=== PATIENT | female | born 1965 | race Caucasian/White ===

== ENCOUNTER → 2017-09-04 | Outpatient (CLI) | payer BC ==
[~2017-09-04] MED LIST: DIA5 PO; HYD2 PO; HYDR1TAB PO; LEVO75TA68 PO; LEVO88TA42 PO; LIO5 PO; METF-420 PO; OXYC1TAB54 PO; OXYC20TA86 PO
--- NOTE | 2017-09-04 17:44 | RADIOLOGY IMAGING REPORT ---
FACILITY: [facility] - [place] PATIENT NAME: JESSICA PELAEZ : [id number] MR: [id number] V: [id number] EXAM DATE: [id number] ORDERING PHYSICIAN: LYUDMILA WESTBROOK TECHNOLOGIST: Aaliyah Fonseca PROCEDURE:BILATERAL DIGITAL SCREENING MAMMOGRAM WITH CAD ASSISTED INTERPRETATION & 3D TOMOSYNTHESIS COMPARISON:Prior mammograms 10/24/15. INDICATIONS:SCREENING FINDINGS: Moderately dense fibroglandular tissue is seen throughout the breasts. There is a small focal area of increased density just lateral to the mid nipple line approximately 16mm from the nipple on the Right CC view for which spot compression view is recommended. There is a well circumscribed nodular density in the medial portion Left breast on the Left CC view is just above mid nipple line on the Left MLO view for which Left breast Ultrasound is recommended. DIAGNOSTIC CATEGORY 0--INCOMPLETE: NEED ADDITIONAL IMAGING EVALUATION. RECOMMENDATIONS: ADDITIONAL MAMMOGRAPHIC VIEWS REQUIRED: RIGHT BREAST. ULTRASOUND: LEFT BREAST. IMPRESSION: BIRADS 0: Incomplete Additional views of the Right breast and Left breast Ultrasound recommended as described. Dictated by: Jerri Rios M.D. on 09/04/2017 at 11:49 Transcribed by: RACHEL on 09/04/2017 at 13:13 Approved by: Jerri Rios M.D. on 09/04/2017 at 17:43 [facility]
== END ==
LOC: MAMO 01:36
PROVIDERS: ATTEND Family Medicine
DX: Z12.31 Encounter for screening mammogram for malignant neoplasm of breast (principal); R92.8 Other abnormal and inconclusive findings on diagnostic imaging of breast
CPT/HCPCS: 77063; 77067

== ENCOUNTER → 2017-09-23 | Outpatient (CLI) | payer BC ==
--- NOTE | 2017-09-24 11:17 | RADIOLOGY IMAGING REPORT ---
FACILITY: [facility] PATIENT NAME: JESSICA PELAEZ : [id number] MR: [id number] V: [id number] EXAM DATE: [id number] ORDERING PHYSICIAN: LYUDMILA WESTBROOK TECHNOLOGIST: Aaliyah Fonseca PROCEDURE:RIGHT DIGITAL DIAGNOSTIC MAMMOGRAM WITH CAD ASSISTED INTERPRETATION & 3D TOMOSYNTHESIS COMPARISON:Prior mammograms 09/04/17, 10/24/15. INDICATIONS:further evaluation FINDINGS: The patient received a mediolateral view of the Right breast and a Spot compression view in the Right CC projection. Small focal rounded area just lateral to the Right nipple on the Right CC view is re-demonstrated. Today's Right breast Ultrasound did demonstrate a well circumscribed ovoid hypoechoic nodule measuring 4.7 x 4.8 x 2.7mm in the 9 o'clock position Right breast 1cm from the nipple. This likely accounts for the small nodular density. Given the solid nature a 6 month follow-up Right breast Ultrasound is recommended. DIAGNOSTIC CATEGORY 3--PROBABLY BENIGN FINDING. RECOMMENDATIONS: SIX MONTH FOLLOW-UP ULTRASOUND: RIGHT BREAST. IMPRESSION: BIRADS 3: Probably benign finding. A 6 month follow-up Right breast Ultrasound recommended. Dictated by: Jerri Rios M.D. on 09/23/2017 at 16:40 Transcribed by: FIX on 09/24/2017 at 10:00 Approved by: Jerri Rios M.D. on 09/24/2017 at 11:17 [facility]
--- NOTE | 2017-09-24 11:18 | RADIOLOGY IMAGING REPORT ---
[place] [facility] [place]: JESSICA PELAEZ : [id number] MR: [id number] V: [id number] EXAM DATE: [id number] ORDERING PHYSICIAN: LYUDMILA WESTBROOK TECHNOLOGIST: Marika Prescott PROCEDURE:LIMITED US RIGHT BREAST COMPARISON:Prior Right Mammogram Performed Today. INDICATIONS:Further evaluation FINDINGS: In the 9 o'clock position of the Right breast 1cm from the nipple is a well circumscribe ovoid hypoechoic nodule measuring 4.7 x 4.8 x 2.7mm. The nodule is wider than tall with no acoustic shadowing. This likely account's for Today's mammographic finding. Given the solid nature a 6 month follow-up Right breast Ultrasound is recommended unless clinical findings warrant more immediate attention. DIAGNOSTIC CATEGORY 3--PROBABLY BENIGN FINDING. RECOMMENDATIONS: SIX MONTH FOLLOW-UP ULTRASOUND: RIGHT BREAST. IMPRESSION: BIRADS 3: Probably benign finding. A 6 month follow-up Right breast Ultrasound recommended. Dictated by: Jerri Rios M.D. on 09/23/2017 at 16:43 Transcribed by: RACHEL on 09/24/2017 at 10:07 Approved by: Jerri Rios M.D. on 09/24/2017 at 11:17 [facility]
--- NOTE | 2017-09-24 11:18 | RADIOLOGY IMAGING REPORT ---
FACILITY: [facility] PATIENT NAME: JESSICA PELAEZ : [id number] MR: [id number] V: [id number] EXAM DATE: [id number] ORDERING PHYSICIAN: LYUDMILA WESTBROOK TECHNOLOGIST: Marika Prescott PROCEDURE:US LEFT BREAST COMPARISON:Prior mammogram 09/04/17. INDICATIONS:Further evaluation FINDINGS: In the approximate 11 o'clock position of the Left breast there is a small ovoid anechoic region measuring 5.5 x 6.5 x 2.1mm may represent a small dilated duct or a cyst. This may account for the recent mammographic findings however a Left breast mammogram is recommended in 6 months to document stability of the ovoid nodule seen on the recent mammogram. DIAGNOSTIC CATEGORY 3--PROBABLY BENIGN FINDING. RECOMMENDATIONS: SIX MONTH FOLLOW-UP DIAGNOSTIC MAMMOGRAM: LEFT BREAST. IMPRESSION: BIRADS 3: Probably benign finding. A 6 month follow-up Left mammogram is recommended as described. Dictated by: Jerri Rios M.D. on 09/23/2017 at 16:42 Transcribed by: RACHEL on 09/24/2017 at 10:12 Approved by: Jerri Rios M.D. on 09/24/2017 at 11:17 [facility]
== END ==
LOC: MAMO 02:12
PROVIDERS: ATTEND Family Medicine
DX: N63.10 Unspecified lump in the right breast, unspecified quadrant (principal)
CPT/HCPCS: 77061; 77065

== ENCOUNTER 2017-12-08 21:59 | Emergency (ER) | payer BC ==
[~2017-12-08 21:59] MED LIST changes: -ESTR1PAT TOP; -HYD10 PO; -POTA-1 PO; -[UNRECOGNIZED DRUG - CODE] PO
[2017-12-08 22:17] LABS: PLATELET COUNT, AUTOMATED 294 K/uL (150-450)
[2017-12-08] MEDS ORDERED: POTASSIUM CHL 20 MEQ TABCR PO ONE (22:30)
--- NOTE | 2017-12-08 22:38 | EKG ---
FACILITY: [facility] PATIENT NAME: JESSICA PELAEZ : [id number] MR: [id number] V: [id number] EXAM DATE: ORDERING PHYSICIAN: MARCO ANTONIO GALINDO TECHNOLOGIST: ALISSON Huston Reason : Blood Pressure : / mmHG Vent. Rate : 062 BPM Atrial Rate : 062 BPM P-R Int : 176 ms QRS Dur : 088 ms QT Int : 402 ms P-R-T Axes : 052 056 040 degrees QTc Int : 408 ms Sinus rhythm No acute appearing findings No previous ECGs available Confirmed by BRENNON GALLOWAY ([id number]) on 12/09/2017 6:19:13 AM Referred By: Confirmed By:BRENNON GALLOWAY
[2017-12-08] MEDS ORDERED: POTA-1 PO (22:47)
--- NOTE | 2017-12-08 22:47 | ER Report ---
History and Physical Time Seen By MD: 22:03 Hx. of Stated Complaint: PATIENT WAS AT HOME AND STARTED HAVING PAIN IN HER STERNAL AREA IT FELT LIKE A PRESSURE, PT HAD SHORTNESS OF BREATH WITH PAIN, PATIENT HAD A GIN AND TONIC HPI/ROS CHIEF COMPLAINT: Abdominal pain, chest pain HISTORY OF PRESENT ILLNESS: 52-year-old perimenopausal female brought in by ambulance after complaining of chest pain. Patient notes that she's not had a menstrual cycle in 2 months. She's had intermittent periods. Today she began having lower abdominal cramps. It spread to her epigastrium over the last 4 hours. She developed chest tightness and difficulty breathing which prompted her to call the ambulance. She took ibuprofen and Tylenol at home. She also had a gin & tonic. Patient denies cardiac risk factors except type II diabetes. Patient denies nausea or diaphoresis. EMS transmitted an EKG that showed no evidence of ischemia. Patient currently only has mild substernal discomfort along her costal margins in both upper quadrants. REVIEW OF SYSTEMS: Respiratory: As above Cardiovascular: As above Gastrointestinal: As above Musculoskeletal: No back pain. Allergies: Coded Allergies: tramadol (Verified Allergy, Intermediate, HEADACHE, VOMITING, LETHARGY, ) Home Meds Active Scripts Potassium Chloride (K-TAB) 10 Meq Tablet.er, 10 MEQ PO DAILY for potassium replacement, #30 Prov:IAN GALINDOErika Harmon DO 12/08/17 Reported Medications Thyroid,Pork (ARMOUR THYROID) 180 Mg Tablet, 1 TAB PO QDAY 12/09/17 Estradiol (Estradiol) 1 Each Patch.tdsw, 1 PATCH.24H TOP QDAY 12/09/17 Hydrocortisone (HYDROCORTISONE) 10 Mg Tab, 1 TAB PO QHS 12/09/17 Metformin Hcl (Glucophage) 1,000 Mg Tablet, 1000 MG PO BID, 0 Refills 04/26/11 Discontinued Reported Medications Diazepam (VALIUM (OR EQUIV)) 5 Mg Tab, 10 MG PO Q6H Y, #30 07/14/12 Oxycodone/Acetaminophen (PERCOCET 5/325 (OR EQUIV)) 1 Ea Tab, 1 EA PO Q6H Y, #60 07/14/12 Liothyronine Sodium (Cytomel) 5 Mcg Tab, 5 MCG PO QDAY 07/09/12 Levothyroxine Sodium (Levothyroxine Sodium) 88 Mcg Tablet, 88 MCG PO DAILY 3/14/13 Past Medical/Surgical History Hypothyroidism, hormone replacement therapy, type II diabetes Reviewed Nurses Notes: Yes Old Medical Records Reviewed: Yes Constitutional Vital Sign - Last 24 Hours 12/08/17 12/08/17 12/08/17 12/08/17 22:00 22:14 22:31 22:44 Temp 97.8 Pulse 67 73 82 Resp 12 8 24 B/P (MAP) 114/82 75/65 (68) Pulse Ox 97 94 94 O2 Delivery Room Air 12/08/17 12/08/17 12/08/17 12/08/17 22:59 23:00 23:14 23:29 Pulse 79 78 84 Resp 11 12 26 B/P (MAP) 114/40 (64) Pulse Ox 94 95 97 Physical Exam Vital signs stable, afebrile, pulse ox normal General Appearance: The patient is alert, has no immediate need for airway protection and no current signs of toxicity.. Mild distress HEENT Pupils equal and round no injection. TMs normal, oropharynx redness or exudate, mucous members are moist Respiratory: Chest is non tender, lungs are clear to auscultation. Cardiac: regular rate and rhythm Gastrointestinal: Abdomen is soft and non tender, no masses, bowel sounds normal. Musculoskeletal: Neck: Neck is supple and non tender. Extremities have full range of motion and are non tender. Skin: No rashes or lesions. DIFFERENTIAL DIAGNOSIS: After history and physical exam differential diagnosis was considered for chest pain including but not limited to myocardial ischemia, pericarditis pulmonary embolus, chest wall pain, pleural inflammation and pulmonary infectious causes. Medical Decision Making Data Points Result Diagram: 12/08/17215812/08/172158 Laboratory Hematology Test 12/08/17 21:59 Red Blood Count 4.52 M/uL (4.17-5.56) Mean Corpuscular Volume 96.3 fL (80.0-96.0) Mean Corpuscular Hemoglobin 34.0 pg (26.0-33.0) Mean Corpuscular Hemoglobin Concent 35.3 g/dL (32.0-36.0) Red Cell Distribution Width 12.7 % (11.5-14.5) Mean Platelet Volume 7.1 fL (7.2-11.1) Neutrophils (%) (Auto) 41.4 % (39.4-72.5) Lymphocytes (%) (Auto) 44.4 % (17.6-49.6) Monocytes (%) (Auto) 10.4 % (4.1-12.4) Eosinophils (%) (Auto) 3.1 % (0.4-6.7) Basophils (%) (Auto) 0.7 % (0.3-1.4) Nucleated RBC Relative Count (auto) 0.0 /100WBC Neutrophils # (Auto) 3.0 K/uL (2.0-7.4) Lymphocytes # (Auto) 3.2 K/uL (1.3-3.6) Monocytes # (Auto) 0.8 K/uL (0.3-1.0) Eosinophils # (Auto) 0.2 K/uL (0.0-0.5) Basophils # (Auto) 0.0 K/uL (0.0-0.1) Nucleated RBC Absolute Count (auto) 0.00 K/uL D-Dimer Quantitative (PE/DVT) < 0.27 ug/ml (0-0.50) Sodium Level 143 mmol/L (137-145) Potassium Level 2.8 mmol/L (3.5-5.0) Chloride Level 108 mmol/L (98-107) Carbon Dioxide Level 20 mmol/L (22-31) Blood Urea Nitrogen 8 mg/dl (7-18) Creatinine 0.60 mg/dl (0.52-1.04) Glomerular Filtration Rate Calc > 60.0 Random Glucose 97 mg/dl (75-110) Calcium Level 8.9 mg/dl (8.4-10.2) Total Bilirubin 0.2 mg/dl (0.2-1.3) Aspartate Amino Transf (AST/SGOT) 15 U/L (0-35) Alanine Aminotransferase (ALT/SGPT) 19 U/L (0-56) Alkaline Phosphatase 64 U/L (0-126) Troponin I < 0.012 ng/ml B-Type Natriuretic Peptide 21 pg/ml (0-100) Total Protein 6.3 g/dl (6.3-8.2) Albumin 4.0 g/dl (3.5-5.0) Chemistry Test 12/08/17 21:59 White Blood Count 7.2 k/uL (4.5-11.0) Red Blood Count 4.52 M/uL (4.17-5.56) Hemoglobin 15.4 g/dL (12.0-16.0) Hematocrit 43.6 % (34.0-47.0) Mean Corpuscular Volume 96.3 fL (80.0-96.0) Mean Corpuscular Hemoglobin 34.0 pg (26.0-33.0) Mean Corpuscular Hemoglobin Concent 35.3 g/dL (32.0-36.0) Red Cell Distribution Width 12.7 % (11.5-14.5) Platelet Count 294 K/uL (150-450) Mean Platelet Volume 7.1 fL (7.2-11.1) Neutrophils (%) (Auto) 41.4 % (39.4-72.5) Lymphocytes (%) (Auto) 44.4 % (17.6-49.6) Monocytes (%) (Auto) 10.4 % (4.1-12.4) Eosinophils (%) (Auto) 3.1 % (0.4-6.7) Basophils (%) (Auto) 0.7 % (0.3-1.4) Nucleated RBC Relative Count (auto) 0.0 /100WBC Neutrophils # (Auto) 3.0 K/uL (2.0-7.4) Lymphocytes # (Auto) 3.2 K/uL (1.3-3.6) Monocytes # (Auto) 0.8 K/uL (0.3-1.0) Eosinophils # (Auto) 0.2 K/uL (0.0-0.5) Basophils # (Auto) 0.0 K/uL (0.0-0.1) Nucleated RBC Absolute Count (auto) 0.00 K/uL D-Dimer Quantitative (PE/DVT) < 0.27 ug/ml (0-0.50) Glomerular Filtration Rate Calc > 60.0 Calcium Level 8.9 mg/dl (8.4-10.2) Total Bilirubin 0.2 mg/dl (0.2-1.3) Aspartate Amino Transf (AST/SGOT) 15 U/L (0-35) Alanine Aminotransferase (ALT/SGPT) 19 U/L (0-56) Alkaline Phosphatase 64 U/L (0-126) Troponin I < 0.012 ng/ml B-Type Natriuretic Peptide 21 pg/ml (0-100) Total Protein 6.3 g/dl (6.3-8.2) Albumin 4.0 g/dl (3.5-5.0) Coagulation Test 12/08/17 21:59 D-Dimer Quantitative (PE/DVT) < 0.27 ug/ml EKG/Imaging EKG Interpretation 12 lead EK Rhythm: normal sinus rhythm Raymond: normal QRS: normal ST segments: normal, no evidence of ischemia or dysrhythmia Imaging X-ray: Two-view chest x-ray was obtained. I viewed the images myself on the PACS system. My interpretation of the images is: Infiltrate, no effusion, normal mediastinum. [The radiologist interpretation had no clinically significant variation from this interpretation]. ED Course/Re-evaluation Clinical Indication for ER IV: IV Access ED Course Patient was admitted to an examination room. H&P was done. The differential diagnoses was considered. On clinical examination. Patient is in no acute distress on arrival. Her EKG is unremarkable for evidence of ischemia or heart strain. Diagnostic evaluation is sent off. Her troponin. A d-dimer unremarkable. Her potassium returns low at 2.8. She's given potassium [address] She's given a prescription for K-Tab. She is reassured that her pain is not related to cardiac or pulmonary embolism causes. She is advised to follow-up with her primary care physician if unimproved in 3-5 days. Decision to Disposition Date: Dec 08, 2017 Decision to Disposition Time: 22:45 Depart Departure Latest Vital Signs Vital Signs Date Time Temp Pulse Resp B/P (MAP) Pulse Ox O2 Delivery O2 Flow Rate FiO2 12/08/17 23:29 84 26 97 12/08/17 23:00 114/40 (64) 12/08/17 22:00 97.8 Room Air Impression: Primary Impression: Non-cardiac chest pain Additional Impressions: Menstrual cramps Hypokalemia Condition: Improved Disposition: HOME OR SELF-CARE Referrals: LYUDMILA WESTBROOK DO (PCP) New Scripts Potassium Chloride (K-TAB) 10 Meq Tablet.er 10 MEQ PO DAILY for potassium replacement, #30 Prov: MARCO ANTONIO GALINDO DO 12/08/17 Patient Instructions: Chest Wall Pain (ED), Dysmenorrhea (ED) Additional Instructions: Take ibuprofen and Tylenol as needed for pain relief Eat a potassium rich diet Follow-up with your primary care if unimproved in 3-5 days Problem Qualifiers MARCO ANTONIO GALINDO DO Dec 08, 2017 22:47
--- NOTE | 2017-12-08 22:58 | RADIOLOGY IMAGING REPORT ---
[place] [facility] [place]IENT NAME: Eugenie De : 1965 MR: [id number] V: [id number] EXAM DATE: ORDERING PHYSICIAN: MARCO ANTONIO GALINDO TECHNOLOGIST: Location: [facility] Patient: Eugenie De : 1965 Visit/Account:[id number] Date of Sevice: 12/08/2017 EXAMINATION: Chest 2 Views HISTORY: Chest pain. COMPARISON: 03/03/2012. FINDINGS: The lungs are clear. No focal consolidation or pleural fluid. No pneumothorax. Normal cardiomedias tinal silhouette, with normal heart size and pulmonary vascularity. Visualized osseous structures ar e unremarkable. IMPRESSION: Negative chest. Report Dictated By: Kirill Gaviria MD at 12/08/2017 10:53 PM Report E-Signed By: Kirill Gaviria MD at 12/08/2017 10:54 PM WSN:[id number]
[2017-12-08 23:00] VITALS: BP 114/40
[2017-12-09] MEDS ORDERED: ESTR1PAT TOP (04:33)
[2017-12-09] MEDS ORDERED: HYD10 PO (04:33)
[2017-12-09] MEDS ORDERED: [UNRECOGNIZED DRUG - CODE] PO (04:33)
[2017-12-09] MEDS ORDERED: EMS NS 0.9%(*) 1000 ML BAG 1,000 ML IV ONE (04:40)
== END 2017-12-08 23:34 | disposition home or self-care (01) ==
LOC: ER 22:04
DX: E87.6 Hypokalemia (principal); N94.6 Dysmenorrhea, unspecified; R07.89 Other chest pain
CPT/HCPCS: 71046; 82040; 82247; 82310; 82374; 82435; 82565; 82947; 83880; 84075; 84132; 84155; 84295; 84450; 84460; 84484; 84520; 85025; 85379; 93005; 96360; 96361; 99284

== ENCOUNTER → 2017-12-08 | Outpatient (CLI) | payer BC ==
[~2017-12-08] MED LIST changes: +ESTR1PAT TOP; +HYD10 PO; +POTA-1 PO; +[UNRECOGNIZED DRUG - CODE] PO
== END ==
LOC: AMB 21:04
PROVIDERS: ATTEND Nurse Practitioner
DX: R07.9 Chest pain, unspecified (principal); I95.9 Hypotension, unspecified
CPT/HCPCS: A0425; A0427